=== PATIENT | female | born 2000 | race Caucasian/White ===

== ENCOUNTER 2023-02-14 12:46 | Emergency (ER) | payer BC ==
[~2023-02-14] VITALS: Ht 167 cm; Wt 82.0 kg
[2023-02-14] MEDS ORDERED: KETOROLAC INJ 30 MG/ML VIAL IM ONE (13:15)
[2023-02-14] MEDS ORDERED: ORPHENADRINE 60 MG/2 ML AMP (ED ONLY) IM ONE (13:15)
--- NOTE | 2023-02-14 13:15 | ED General ---
General Chief Complaint: Head/Cervical Problems Stated Complaint: BUMP ON HEAD Nursing Triage Note: pt to ed with c/o bump on the right side of her head. states it has been there for 2 weeks, also c/o headache and dizziness Source of Information: Patient Exam Limitations: No Limitations History of Present Illness Date Seen by Provider: Feb 14, 2023 Time Seen by Provider: 13:11 Initial Comments Patient is a 22-year-old female who presents to ED with a "bump" to the right lower occipital scalp. She states she woke up with a" bump" 2 weeks ago. She has had increasing pain with headache and dizziness. She reports increase in size. Denies any drainage, or redness. Has been taken ibuprofen without much improvement. Also applied ice without much help. She denies of any specific injury. She denies any, unilateral weakness or sensory changes, headache, visual changes, sore throat chest pain, shortness of breath. Patient denies any numbness and tingling into her upper extremities. Allergies and Home Medications Allergies Coded Allergies: No Known Drug Allergies (Unverified , 02/14/23) Patient Home Medication List Home Medication List Reviewed: Yes Cyclobenzaprine HCl (Cyclobenzaprine HCl) 10 Mg Tablet, 10 MG PO TID Prescribed by: SHIRA FELDMAN on 02/14/23 1319 Naproxen (Naproxen) 500 Mg Tablet, 500 MG PO Q12H Prescribed by: SHIRA FELDMAN on 02/14/23 1319 Review of Systems Review of Systems Constitutional: No chills EENTM: No ear pain, No blurred vision, No double vision Respiratory: No cough, No dyspnea on exertion Cardiovascular: No chest pain, No edema Gastrointestinal: No abdominal pain, No diarrhea, No nausea, No vomiting Genitourinary: No decreased output Musculoskeletal: No back pain, No joint pain, No muscle pain Skin: No change in color All Other Systems Reviewed Negative Unless Noted: Yes Past Iynhfex-Wrehly-Xeopvx Hx Patient Social History Tobacco Use?: No Substance use?: No Alcohol Use?: Yes Alcohol Frequency: Once in a while Physical Exam Vital Signs Vital Signs - First Documented 02/14/23 12:55 Temp 36.7 Pulse 88 Resp 18 B/P (MAP) 128/86 (100) Pulse Ox 100 Capillary Refill : Height, Weight, BMI Height: '" Weight: lbs. oz. kg; 29.00 BMI Method: General Appearance: No Apparent Distress, WD/WN Eyes: Bilateral Eye Normal Inspection, Bilateral Eye PERRL, Bilateral Eye EOMI HEENT: PERRL/EOMI, TMs Normal, Normal ENT Inspection, Pharynx Normal, Other (Tenderness to palpate the right lateral tuberance. No swelling or redness. No movable lesion. ) Neck: Full Range of Motion, Normal Inspection, Non Tender, Supple Respiratory: Chest Non Tender, Lungs Clear, Normal Breath Sounds, No Accessory Muscle Use, No Respiratory Distress Cardiovascular: Regular Rate, Rhythm, No Edema, No Gallop, No JVD, No Murmur Gastrointestinal: Normal Bowel Sounds, No Organomegaly, No Pulsatile Mass, Non Tender, Soft Back: Normal Inspection, No CVA Tenderness, No Vertebral Tenderness Extremity: Normal Capillary Refill, Normal Inspection, Normal Range of Motion, Non Tender Neurologic/Psychiatric: Alert, Oriented x3, No Motor/Sensory Deficits, Normal Mood/Affect Progress/Results/Core Measures Suspected Sepsis SIRS Temperature: Pulse: 88 Respiratory Rate: 18 Blood Pressure 128 /86 Mean: 100 Results/Orders My Orders Orders - NANCY MCGINNIS Ketorolac Injection (Ketorolac Injection (02/14/23 13:15) Orphenadrine Inj (Ed Only) (Orphenadrine (02/14/23 13:15) Medications Given in ED Current Medications Medications Dose Ordered Sig/Michelle Route Start Time Stop Time Status Last Admin Dose Admin Ketorolac Tromethamine 30 mg ONCE ONCE IM 02/14/23 13:15 02/14/23 13:16 DC 02/14/23 13:25 30 MG Orphenadrine Citrate 60 mg ONCE ONCE IM 02/14/23 13:15 02/14/23 13:16 DC 02/14/23 13:24 60 MG Vital Signs/I&O 02/14/23 02/14/23 12:55 13:38 Temp 36.7 36.7 Pulse 88 88 Resp 18 18 B/P (MAP) 128/86 (100) 128/86 Pulse Ox 100 100 Capillary Refill : Blood Pressure Mean: 100 Departure Communication (PCP) Reviewed previous ER visits, H&P, lab testing. Differential diagnosis abscess, cyst, lipoma, occipital neuralgia, muscle strain. Patient presents to the ED for a concern of a "bump" to her right occipital scalp. She states this has increased in size. No injury. Headache and dizziness. No visual changes. No radiating pain into the upper extremity. She denies of any fever, chills, body aches. On exam there is no evidence of redness, warmth or obvious swelling. Comparable and symmetrical bony markings on both sides. There is no evidence of movable cyst. Since there is no redness or swelling I do not think necessarily incision and drainage is needed at this time as I do not find a notable cyst. There is nothing that is Free movable. There is symmetrical bony markings bilateral which could be a source of the pain as muscles do attach to these points. Do not necessarily believe emergent imaging is needed at this time. She did receive Toradol and Norflex here for potential muscular in nature. Did provide in discharge general surgery follow-up if increasing size may suggest further evaluation for potential cyst that could be developing. Does not appear cancerous. Will discharge with anti-inflammatories and muscle relaxers. Recommend ice and heat. Provided stretching. She has no neurological deficits. No cervical midline tenderness. Impression Primary Impression: Scalp tenderness Disposition: HOME, SELF-CARE Condition: Stable Departure-Patient Inst. Decision time for Depature: 13:12 Referrals: NO,LOCAL PHYSICIAN (PCP) Primary Care Physician [facility]/WILMER PINEDA MD Patient Instructions: General (DC) Add. Discharge Instructions: Recommend anti-inflammatories and muscle relaxers if this is anything to do with muscular pain as this is a insertion point for muscle which can result in swelling. No evidence of abscess or movable cyst. recommend continue monitoring if increased swelling redness or warmth return back to ED. Provided general surgery outpatient follow-up for further evaluation as needed. suggest alternating heat and ice.. All discharge instructions reviewed with patient and/or family. Voiced understanding. Scripts Cyclobenzaprine HCl (Cyclobenzaprine HCl) 10 Mg Tablet 10 MG PO TID for Muscle Spasms, #14 TAB Prov: NANCY MCGINNIS 02/14/23 Naproxen (Naproxen) 500 Mg Tablet 500 MG PO Q12H, #20 TAB Prov: NANCY MCGINNIS 02/14/23 NANCY MCGINNIS Feb 14, 2023 13:14
[2023-02-14] MEDS ORDERED: NAPR-915 PO (13:19)
[2023-02-14] MEDS ORDERED: CYCL10TA25 PO (13:19)
[2023-02-14 13:38] VITALS: BP 128/86
== END 2023-02-14 13:38 | disposition home or self-care (01) ==
LOC: ER 12:51
DX: R51.9 Headache, unspecified (principal)
CPT/HCPCS: 99284